=== PATIENT | male | born 1960 | race Caucasian/White ===

== ENCOUNTER 2018-06-17 11:45 | Inpatient (IN) | payer MEDICAID ==
[2018-06-17 12:19] LABS: ADD MAN DIFF? NO
[2018-06-17 12:20] LABS: BASOPHILS % 0.2 % (0.0-2.0); EOSINOPHILS # 0.1 10^3/ul (0.0-0.5); EOSINOPHILS % 0.7 % (0.0-7.0); HEMATOCRIT 41.2 % (42.0-52.0); HEMOGLOBIN 14.3 g/dl (14.0-18.0); LYMPHOCYTES # 2.2 10^3/ul (0.8-2.9); LYMPHOCYTES % 18.6 % (15.0-51.0); MEAN CORPUSCULAR HEMOGLOBIN 29.4 pg (29.0-33.0); MEAN CORPUSCULAR HGB CONC 34.7 g/dl (32.0-37.0); MEAN CORPUSCULAR VOLUME 84.8 fl (82.0-101.0); MEAN PLATELET VOLUME 10.6 fl (7.4-10.4); MONOCYTE # 1.1 10^3/ul (0.3-0.9); NEUTROPHIL # 8.5 10^3/ul (1.6-7.5); NEUTROPHILS % 70.8 % (39.0-77.0); PLATELET COUNT 255 10^3/UL (140-415); RED BLOOD COUNT 4.86 10^6/ul (4.70-6.10); RED CELL DISTRIBUTION WIDTH 11.5 % (11.5-14.5)
[2018-06-17 12:20] LABS: WHITE BLOOD COUNT 12.1 10^3/ul (4.8-10.8)
[2018-06-17] MEDS: SODIUM CHLORIDE 0.9% 1L BAG IV* (12:30)
[2018-06-17] MEDS: PIPER-TAZO 3.375 GM IV (PMX) 100 ML IVPB ×3 (12:32→23:31)
[2018-06-17] MEDS: ACETAMINOPHEN 325 MG TAB PO (12:49)
[2018-06-17 12:50] LABS: INR 0.96; PROTIME 12.9 Sec (11.9-14.9)
[2018-06-17 12:55] LABS: ALANINE AMINOTRANSFERASE 16 IU/L (13-69); ALBUMIN/GLOBULIN RATIO 1.02; ALKALINE PHOSPHATASE 99 IU/L (42-121); ANION GAP 12 (5-13); ASPARTATE AMINO TRANSFERASE 18 IU/L (15-46); BILIRUBIN,INDIRECT 0.4 mg/dl (0-1.1); BILIRUBIN,TOTAL 0.4 mg/dl (0.2-1.3); BLOOD UREA NITROGEN 20 mg/dl (7-20); C-REACTIVE PROTEIN 5.7 mg/dl (0.0-0.9); CALCIUM 9.6 mg/dl (8.4-10.2); CARBON DIOXIDE 25 mmol/L (21-31); CHLORIDE 96 mmol/L (97-110); CREATININE 0.88 mg/dl (0.61-1.24); Estimated GFR > 60 mL/min (>60); POTASSIUM 4.2 mmol/L (3.5-5.1); SODIUM 133 mmol/L (135-144); TOTAL PROTEIN 7.9 g/dl (6.1-8.1)
[2018-06-17 12:59] LABS: GLUCOSE 453 mg/dl (70-220)
[2018-06-17] MEDS: VANCOMYCIN 1 GM (PMX) 250 ML IVPB (12:59)
[2018-06-17 13:02] LABS: TROPONIN-I < 0.012 ng/ml (0.000-0.120)
[2018-06-17 13:19] LABS: ADD UMIC NO; UR ASCORBIC ACID NEGATIVE (NEGATIVE); UR BILIRUBIN (Dip) NEGATIVE (NEGATIVE); UR BLOOD (Dip) NEGATIVE (NEGATIVE); UR CLARITY SLIGHTLY CLOUDY (CLEAR); UR COLOR YELLOW (YELLOW); UR GLUCOSE (Dip) 3+ mg/dL (NEGATIVE); UR KETONES (Dip) TRACE mg/dL (NEGATIVE); UR LEUKOCYTE ESTERASE (Dip) NEGATIVE Leu/ul (NEGATIVE); UR NITRITE (Dip) NEGATIVE (NEGATIVE); UR RBC 0 /HPF (0-5); UR SPECIFIC GRAVITY (Dip) 1.025 (1.003-1.030); UR TOTAL PROTEIN (Dip) NEGATIVE (NEGATIVE); UR UROBILINOGEN (Dip) NEGATIVE (NEGATIVE); UR WBC 1 /HPF (0-5)
[2018-06-17] MEDS ORDERED: VANCOMYCIN IV PER PHARMACY XX (14:00)
[2018-06-17] MEDS ORDERED: NACL 0.9% 3 ML SYG IV (14:00)
[2018-06-17] MEDS ORDERED: ONDANSETRON 4 MG INJ IV (14:00)
[2018-06-17] MEDS ORDERED: ACETAMINOPHEN 325 MG TAB PO (14:00)
[2018-06-17 14:25] LABS: LACTIC ACID 2.3 mmol/L (0.5-2.0)
[2018-06-17] MEDS: INSULIN REGULAR, HUMAN 100 UNIT/1 ML 3ML VIAL SC (14:29)
[2018-06-17] MEDS ORDERED: DEXTROSE 50% 50 ML SYRINGE IV ×2 (15:00)
[2018-06-17] MEDS ORDERED: GLUCOSE GEL 15 GRAM TUBE BUCCAL (15:00)
[2018-06-17] MEDS ORDERED: GLUCOSE GEL 15 GRAM TUBE PO ×2 (15:00)
[2018-06-17] MEDS ORDERED: GLUCAGON 1 MG INJ IM (15:00)
[2018-06-17] MEDS: VANCOMYCIN 1 GM in 250 ML IVPB (15:49)
[2018-06-17 16:42] LABS: LACTIC ACID 1.9 mmol/L (0.5-2.0)
[2018-06-17] MEDS: INSULIN ASPART [NOVOLOG] 3 ML PEN SC ×3 (18:00→20:18)
[2018-06-17] MEDS: SOD CHLORIDE 0.9% 1,000 ML IV (18:05)
[2018-06-17] MEDS: INSULIN GLARGINE [LANTus] (100 UNITS/ML) SYG SC (20:17)
[2018-06-18] MEDS: ACCU-CHEK XX (01:36)
[2018-06-18] MEDS: PIPER-TAZO 3.375 GM IV (PMX) 100 ML IVPB ×3 (05:20→18:32)
[2018-06-18 06:07] LABS: ADD MAN DIFF? NO
[2018-06-18 06:11] LABS: WHITE BLOOD COUNT 8.3 10^3/ul (4.8-10.8)
[2018-06-18 06:11] LABS: BASOPHILS % 0.2 % (0.0-2.0); EOSINOPHILS # 0.2 10^3/ul (0.0-0.5); EOSINOPHILS % 2.6 % (0.0-7.0); HEMATOCRIT 38.7 % (42.0-52.0); HEMOGLOBIN 13.2 g/dl (14.0-18.0); LYMPHOCYTES # 1.7 10^3/ul (0.8-2.9); LYMPHOCYTES % 20.3 % (15.0-51.0); MEAN CORPUSCULAR HEMOGLOBIN 29.3 pg (29.0-33.0); MEAN CORPUSCULAR HGB CONC 34.1 g/dl (32.0-37.0); MEAN PLATELET VOLUME 10.3 fl (7.4-10.4); MONOCYTE # 0.8 10^3/ul (0.3-0.9); NEUTROPHIL # 5.5 10^3/ul (1.6-7.5); NEUTROPHILS % 66.1 % (39.0-77.0); PLATELET COUNT 225 10^3/UL (140-415); RED CELL DISTRIBUTION WIDTH 11.7 % (11.5-14.5)
[2018-06-18 06:37] LABS: ALANINE AMINOTRANSFERASE 24 IU/L (13-69); ALBUMIN 3.4 g/dl (3.3-4.9); ALKALINE PHOSPHATASE 74 IU/L (42-121); ANION GAP 9 (5-13); ASPARTATE AMINO TRANSFERASE 17 IU/L (15-46); BILIRUBIN,INDIRECT 0.3 mg/dl (0-1.1); BILIRUBIN,TOTAL 0.3 mg/dl (0.2-1.3); BLOOD UREA NITROGEN 14 mg/dl (7-20); CALCIUM 8.8 mg/dl (8.4-10.2); CARBON DIOXIDE 28 mmol/L (21-31); CHLORIDE 101 mmol/L (97-110); CHOL/HDL RATIO 6.4 RATIO; CHOLESTEROL 174 mg/dl (100-200); CREATININE 0.52 mg/dl (0.61-1.24); Estimated GFR > 60 mL/min (>60); GLUCOSE 235 mg/dl (70-220); HDL CHOLESTEROL 27 mg/dl (30-78); LDL CHOLESTEROL,CALCULATED 121 mg/dl; MAGNESIUM 1.9 mg/dl (1.7-2.5); SODIUM 138 mmol/L (135-144); TOTAL PROTEIN 6.8 g/dl (6.1-8.1); TRIGLYCERIDES 131 mg/dl (0-149)
[2018-06-18 07:45] LABS: HEMOGLOBIN A1C 11.9 % (0-5.9)
[2018-06-18] MEDS: INSULIN ASPART [NOVOLOG] 3 ML PEN SC ×7 (08:50→20:46)
[2018-06-18] MEDS: OXYCODONE/ACETAMINOPHEN (5/325) TAB PO ×2 (08:57→20:20)
[2018-06-18] MEDS: SOD CHLORIDE 0.9% 1,000 ML IV ×2 (10:00→22:59)
[2018-06-18] MEDS ORDERED: VANCOMYCIN HCL 1.5 GM in SOD CHLORIDE 0.9% 250 ML IVPB (12:00)
[2018-06-18] MEDS: VANCOMYCIN HCL 1.5 GM in SOD CHLORIDE 0.9% 250 ML IVPB (14:57)
[2018-06-18] MEDS: INSULIN GLARGINE [LANTus] (100 UNITS/ML) SYG SC (20:44)
[2018-06-19] MEDS: PIPER-TAZO 3.375 GM IV (PMX) 100 ML IVPB ×4 (00:41→17:18)
[2018-06-19] MEDS: VANCOMYCIN HCL 1.5 GM in SOD CHLORIDE 0.9% 250 ML IVPB ×2 (01:10→13:36)
[2018-06-19] MEDS: OXYCODONE/ACETAMINOPHEN (5/325) TAB PO ×4 (02:05→18:44)
[2018-06-19] MEDS: ACCU-CHEK XX (02:12)
[2018-06-19 06:13] LABS: ADD MAN DIFF? NO
[2018-06-19 06:18] LABS: BASOPHILS % 0.2 % (0.0-2.0); EOSINOPHILS # 0.2 10^3/ul (0.0-0.5); EOSINOPHILS % 2.9 % (0.0-7.0); HEMATOCRIT 37.8 % (42.0-52.0); HEMOGLOBIN 12.9 g/dl (14.0-18.0); LYMPHOCYTES # 1.9 10^3/ul (0.8-2.9); LYMPHOCYTES % 23.7 % (15.0-51.0); MEAN CORPUSCULAR HEMOGLOBIN 29.3 pg (29.0-33.0); MEAN CORPUSCULAR HGB CONC 34.1 g/dl (32.0-37.0); MEAN CORPUSCULAR VOLUME 85.7 fl (82.0-101.0); MEAN PLATELET VOLUME 10.3 fl (7.4-10.4); MONOCYTE # 0.8 10^3/ul (0.3-0.9); MONOCYTES % 9.6 % (0.0-11.0); NEUTROPHIL # 5.1 10^3/ul (1.6-7.5); NEUTROPHILS % 62.7 % (39.0-77.0); PLATELET COUNT 220 10^3/UL (140-415); RED BLOOD COUNT 4.41 10^6/ul (4.70-6.10); RED CELL DISTRIBUTION WIDTH 11.8 % (11.5-14.5)
[2018-06-19 06:18] LABS: WHITE BLOOD COUNT 8.2 10^3/ul (4.8-10.8)
[2018-06-19 06:51] LABS: ANION GAP 7 (5-13); BLOOD UREA NITROGEN 11 mg/dl (7-20); CALCIUM 8.7 mg/dl (8.4-10.2); CARBON DIOXIDE 28 mmol/L (21-31); CHLORIDE 102 mmol/L (97-110); CREATININE 0.49 mg/dl (0.61-1.24); Estimated GFR > 60 mL/min (>60); GLUCOSE 207 mg/dl (70-220); MAGNESIUM 1.9 mg/dl (1.7-2.5); PHOSPHORUS 3.6 mg/dl (2.5-4.9); POTASSIUM 3.9 mmol/L (3.5-5.1); SODIUM 137 mmol/L (135-144)
[2018-06-19] MEDS: INSULIN ASPART [NOVOLOG] 3 ML PEN SC ×7 (08:20→20:50)
[2018-06-19] MEDS: DAKINS 0.0125%(1/40) 473 ML SOLUTION TP (09:00)
[2018-06-19 12:33] LABS: CREATININE 0.58 mg/dl (0.61-1.24)
[2018-06-19 12:33] LABS: BLOOD UREA NITROGEN 9 mg/dl (7-20)
[2018-06-19 12:44] LABS: VANCOMYCIN,TROUGH 6.3 ug/ml (10.0-20.0)
[2018-06-19] MEDS: SOD CHLORIDE 0.9% 1,000 ML IV (18:45)
[2018-06-19] MEDS: INSULIN GLARGINE [LANTus] (100 UNITS/ML) SYG SC (20:51)
[2018-06-19] MEDS: VANCOMYCIN HCL 1.25 GM in SOD CHLORIDE 0.9% 250 ML IVPB (21:58)
[2018-06-20] MEDS: PIPER-TAZO 3.375 GM IV (PMX) 100 ML IVPB ×3 (01:15→11:26)
[2018-06-20] MEDS: OXYCODONE/ACETAMINOPHEN (5/325) TAB PO ×3 (01:23→20:10)
[2018-06-20] MEDS: ACCU-CHEK XX (02:00)
[2018-06-20] MEDS: VANCOMYCIN HCL 1.25 GM in SOD CHLORIDE 0.9% 250 ML IVPB ×3 (06:34→22:03)
[2018-06-20 06:48] LABS: ADD MAN DIFF? NO
[2018-06-20 06:55] LABS: WHITE BLOOD COUNT 9.1 10^3/ul (4.8-10.8)
[2018-06-20 06:55] LABS: BASOPHILS % 0.1 % (0.0-2.0); EOSINOPHILS # 0.2 10^3/ul (0.0-0.5); EOSINOPHILS % 2.1 % (0.0-7.0); HEMATOCRIT 37.7 % (42.0-52.0); HEMOGLOBIN 12.7 g/dl (14.0-18.0); LYMPHOCYTES # 1.8 10^3/ul (0.8-2.9); LYMPHOCYTES % 19.8 % (15.0-51.0); MEAN CORPUSCULAR HEMOGLOBIN 29.3 pg (29.0-33.0); MEAN CORPUSCULAR HGB CONC 33.7 g/dl (32.0-37.0); MEAN CORPUSCULAR VOLUME 86.9 fl (82.0-101.0); MEAN PLATELET VOLUME 10.5 fl (7.4-10.4); MONOCYTE # 0.8 10^3/ul (0.3-0.9); MONOCYTES % 8.5 % (0.0-11.0); NEUTROPHIL # 6.3 10^3/ul (1.6-7.5); NEUTROPHILS % 68.9 % (39.0-77.0); PLATELET COUNT 230 10^3/UL (140-415); RED BLOOD COUNT 4.34 10^6/ul (4.70-6.10); RED CELL DISTRIBUTION WIDTH 11.7 % (11.5-14.5)
[2018-06-20 07:45] LABS: ANION GAP 7 (5-13); BLOOD UREA NITROGEN 11 mg/dl (7-20); CALCIUM 8.8 mg/dl (8.4-10.2); CARBON DIOXIDE 28 mmol/L (21-31); CHLORIDE 103 mmol/L (97-110); CREATININE 0.62 mg/dl (0.61-1.24); Estimated GFR > 60 mL/min (>60); GLUCOSE 213 mg/dl (70-220); MAGNESIUM 1.8 mg/dl (1.7-2.5); PHOSPHORUS 3.8 mg/dl (2.5-4.9); POTASSIUM 3.7 mmol/L (3.5-5.1); SODIUM 138 mmol/L (135-144)
[2018-06-20] MEDS: INSULIN ASPART [NOVOLOG] 3 ML PEN SC ×7 (08:05→21:06)
[2018-06-20] MEDS: DAKINS 0.0125%(1/40) 473 ML SOLUTION TP (11:35)
[2018-06-20 14:17] LABS: VANCOMYCIN,TROUGH 12.1 ug/ml (10.0-20.0)
[2018-06-20] MEDS: CEFTRIAXONE 1 GM/50 ML (PMX) 50 ML IVPB (17:57)
[2018-06-20] MEDS: INSULIN GLARGINE [LANTus] (100 UNITS/ML) SYG SC (20:16)
[2018-06-21] MEDS: morphine 2 MG INJ IV (01:37)
[2018-06-21] MEDS: ACCU-CHEK XX (02:00)
[2018-06-21 05:52] LABS: ADD MAN DIFF? NO
[2018-06-21 05:55] LABS: BASOPHILS % 0.2 % (0.0-2.0); EOSINOPHILS # 0.2 10^3/ul (0.0-0.5); EOSINOPHILS % 2.6 % (0.0-7.0); HEMATOCRIT 37.8 % (42.0-52.0); HEMOGLOBIN 12.9 g/dl (14.0-18.0); LYMPHOCYTES # 1.9 10^3/ul (0.8-2.9); MEAN CORPUSCULAR HEMOGLOBIN 29.6 pg (29.0-33.0); MEAN CORPUSCULAR HGB CONC 34.1 g/dl (32.0-37.0); MEAN CORPUSCULAR VOLUME 86.7 fl (82.0-101.0); MEAN PLATELET VOLUME 10.3 fl (7.4-10.4); MONOCYTE # 0.9 10^3/ul (0.3-0.9); MONOCYTES % 10.5 % (0.0-11.0); NEUTROPHIL # 5.7 10^3/ul (1.6-7.5); NEUTROPHILS % 65.1 % (39.0-77.0); PLATELET COUNT 238 10^3/UL (140-415); RED BLOOD COUNT 4.36 10^6/ul (4.70-6.10); RED CELL DISTRIBUTION WIDTH 11.5 % (11.5-14.5)
[2018-06-21 05:55] LABS: WHITE BLOOD COUNT 8.8 10^3/ul (4.8-10.8)
[2018-06-21] MEDS: VANCOMYCIN HCL 1.25 GM in SOD CHLORIDE 0.9% 250 ML IVPB ×3 (06:26→23:07)
[2018-06-21 06:40] LABS: ANION GAP 5 (5-13); BLOOD UREA NITROGEN 10 mg/dl (7-20); CALCIUM 9.1 mg/dl (8.4-10.2); CARBON DIOXIDE 30 mmol/L (21-31); CHLORIDE 100 mmol/L (97-110); CREATININE 0.58 mg/dl (0.61-1.24); Estimated GFR > 60 mL/min (>60); GLUCOSE 229 mg/dl (70-220); MAGNESIUM 1.9 mg/dl (1.7-2.5); PHOSPHORUS 3.9 mg/dl (2.5-4.9); POTASSIUM 3.9 mmol/L (3.5-5.1); SODIUM 135 mmol/L (135-144)
[2018-06-21] MEDS: INSULIN ASPART [NOVOLOG] 3 ML PEN SC ×7 (07:35→20:24)
[2018-06-21] MEDS: OXYCODONE/ACETAMINOPHEN (5/325) TAB PO ×2 (08:30→17:50)
[2018-06-21] MEDS: SOD CHLORIDE 0.9% 1,000 ML IV ×4 (08:35→17:27)
[2018-06-21] MEDS: DAKINS 0.0125%(1/40) 473 ML SOLUTION TP (08:36)
[2018-06-21] MEDS ORDERED: FENTAnyl 50 MCG/ML VIAL (11:44)
[2018-06-21] MEDS ORDERED: MIDAZOLAM 1 MG/ML 2 ML INJ (11:44)
[2018-06-21] MEDS ORDERED: LIDOCAINE 1% (MDV) 20 ML INJ ×2 (11:44→12:59)
[2018-06-21] MEDS ORDERED: HEPARIN 1000 UNITS/NS (A-LINE) 1,000 ML (11:44)
[2018-06-21] MEDS ORDERED: IODIXANOL LOCM 100 ML BTL (11:44)
[2018-06-21] MEDS ORDERED: CLOPIDOGREL 300 MG TAB (13:05)
[2018-06-21] MEDS: CEFTRIAXONE 1 GM/50 ML (PMX) 50 ML IVPB (14:29)
[2018-06-21] MEDS: INSULIN GLARGINE [LANTus] (100 UNITS/ML) SYG SC (20:23)
[2018-06-22] MEDS: ACCU-CHEK XX (02:00)
[2018-06-22] MEDS: morphine 2 MG INJ IV (02:23)
[2018-06-22] MEDS: OXYCODONE/ACETAMINOPHEN (5/325) TAB PO ×3 (06:18→18:54)
[2018-06-22] MEDS: VANCOMYCIN HCL 1.25 GM in SOD CHLORIDE 0.9% 250 ML IVPB ×3 (06:19→21:46)
[2018-06-22] MEDS: INSULIN ASPART [NOVOLOG] 3 ML PEN SC ×7 (08:29→20:42)
[2018-06-22] MEDS: CLOPIDOGREL 75 MG TAB PO (08:32)
[2018-06-22] MEDS: DAKINS 0.0125%(1/40) 473 ML SOLUTION TP (08:32)
[2018-06-22] MEDS: SOD CHLORIDE 0.9% 1,000 ML IV (14:00)
[2018-06-22] MEDS: CEFTRIAXONE 1 GM/50 ML (PMX) 50 ML IVPB (14:10)
[2018-06-22 16:18] LABS: VANCOMYCIN,TROUGH 9.2 ug/ml (10.0-20.0)
[2018-06-22] MEDS: INSULIN GLARGINE [LANTus] (100 UNITS/ML) SYG SC (20:42)
[2018-06-22] MEDS ORDERED: PIPER-TAZO 3.375 GM IV (PMX) 0 ML (21:40)
[2018-06-23] MEDS: ACCU-CHEK XX (02:00)
[2018-06-23] MEDS: VANCOMYCIN HCL 1.25 GM in SOD CHLORIDE 0.9% 250 ML IVPB (06:08)
[2018-06-23] MEDS: OXYCODONE/ACETAMINOPHEN (5/325) TAB PO ×3 (06:16→22:40)
[2018-06-23] MEDS: INSULIN ASPART [NOVOLOG] 3 ML PEN SC ×7 (08:15→20:35)
[2018-06-23] MEDS: CLOPIDOGREL 75 MG TAB PO (08:17)
[2018-06-23] MEDS: SOD CHLORIDE 0.9% 1,000 ML IV ×2 (09:59→20:47)
[2018-06-23] MEDS: LIDOCAINE 1% (MPF) 5 ML VIAL SC (12:00)
[2018-06-23] MEDS: CEFTRIAXONE 1 GM/50 ML (PMX) 50 ML IVPB (14:33)
[2018-06-23] MEDS: DAKINS 0.0125%(1/40) 473 ML SOLUTION TP (17:58)
[2018-06-23] MEDS: metFORMIN 500 MG TAB PO (18:01)
[2018-06-23] MEDS: INSULIN GLARGINE [LANTus] (100 UNITS/ML) SYG SC (20:35)
[2018-06-24] MEDS: ACCU-CHEK XX (01:28)
[2018-06-24] MEDS: CLOPIDOGREL 75 MG TAB PO (08:11)
[2018-06-24] MEDS: OXYCODONE/ACETAMINOPHEN (5/325) TAB PO (08:11)
[2018-06-24] MEDS: metFORMIN 500 MG TAB PO (08:11)
[2018-06-24] MEDS: INSULIN ASPART [NOVOLOG] 3 ML PEN SC ×4 (08:17→12:09)
[2018-06-24] MEDS: DAKINS 0.0125%(1/40) 473 ML SOLUTION TP (08:19)
[2018-06-24] MEDS: CEFTRIAXONE 1 GM/50 ML (PMX) 50 ML IVPB (15:07)
== END 2018-06-24 17:20 | disposition home or self-care (01) | DRG 854 ==
LOC: E/R 11:45 → PP2 14:15
PROC: 047S3ZZ Dilation of Left Posterior Tibial Artery, Percutaneous Approach (ICD-10-PCS; principal; 2018-06-21 11:00)
PROC: B41DZZZ Fluoroscopy of Aorta and Bilateral Lower Extremity Arteries (ICD-10-PCS; 2018-06-21 11:00)
PROC: 02HV33Z Insertion of Infusion Device into Superior Vena Cava, Percutaneous Approach (ICD-10-PCS; 2018-06-21 11:26)
DX: A41.9 Sepsis, unspecified organism (principal); E11.52 Type 2 diabetes mellitus with diabetic peripheral angiopathy with gangrene; M86.9 Osteomyelitis, unspecified; I70.262 Atherosclerosis of native arteries of extremities with gangrene, left leg; E11.42 Type 2 diabetes mellitus with diabetic polyneuropathy; E11.65 Type 2 diabetes mellitus with hyperglycemia; S92.422B Displaced fracture of distal phalanx of left great toe, initial encounter for open fracture; L03.032 Cellulitis of left toe; M47.9 Spondylosis, unspecified; S92.425B Nondisplaced fracture of distal phalanx of left great toe, initial encounter for open fracture; X58.XXXA Exposure to other specified factors, initial encounter; Y93.66 Activity, soccer; Z79.4 Long term (current) use of insulin; Z91.14 Patient's other noncompliance with medication regimen
CPT/HCPCS: 36415; 36569; 71045; 73630-LT; 73718; 75630; 75716; 76937; 80048; 80053; 80061; 80202; 81001; 81003; 82565; 82962; 83036; 83605; 83735; 84100; 84443; 84484; 84520; 85025; 85610; 85651; 85730; 86140; 87040-91; 87070; 87081; 87086; 93005; 93922; 96374; 96375; 99291-25